=== PATIENT | male | born 1975 | race Caucasian/White ===

== ENCOUNTER → 2020-05-14 | Day surgery (SDC) | payer BC ==
[~2020-05-14] VITALS: Ht 170.2 cm; Wt 98.0 kg
[~2020-05-14] MED LIST: FLUO40CA PO; HYDROmorphone HCL 2 MG/ML VL IV PRN; IOHEXOL 300 MG/ML 100ML BOTTLE IJ ONE; LIDOCAINE 2% (LOCAL ANESTH.) PF 5ml SDV ONE; MIDAZOLAM HCL 1MG/1ML-2 ML VIAL ONE; OMEP20TA PO; ONDANSETRON HCL 4 MG/2 ML VIAL IV ONE; ONDANSETRON HCL 4 MG/2 ML VIAL IV PRN; PROPOFOL 10 MG/ML 20 ML IV ONE; SUCCINYLCHOLINE CHLORIDE 20 MG/ML 10ML VIAL IV ONE; ceFAZolin 1GM/50ML 50 ML IV ONE; ePHEDrine SULFATE 50 MG/ML AMP IV ONE; fentaNYL CITRATE 100 MCG/2 ML VL ONE
[2020-05-14 09:30] VITALS: BP 155/97
== END | disposition home or self-care (01) ==
LOC: SUR 06:12
PROVIDERS: ATTEND Urology
DX: N20.0 Calculus of kidney (principal); K21.9 Gastro-esophageal reflux disease without esophagitis; F41.9 Anxiety disorder, unspecified; Z68.33 Body mass index [BMI] 33.0-33.9, adult; Z20.822 Contact with and (suspected) exposure to COVID-19; Z98.890 Other specified postprocedural states; Z79.899 Other long term (current) drug therapy
CPT/HCPCS: 50590; J0330; J0690; J2001; J2250; J2405; J2704; J3010; Q9967; U0003; A4565